=== PATIENT | male | born 1950 | race Caucasian/White ===

== ENCOUNTER → 2017-02-11 | Outpatient (CLI) | payer BC ==
[2017-02-11 09:45] LABS: BASO % 0.5 %; BASO ABS # 0.03 K/uL (0-0.2); COMPLETE YES; EOS % 0.6 %; HEMATOCRIT 43.5 % (42-52); IG% 0.5 %; LYMPH % 24.4 %; LYMPH ABS # 1.58 K/uL (1.2-3.4); MEAN CELL VOLUME 86.3 fL (80-100); MEAN CORPUSCULAR HEMOGLOBIN 31.2 pg (25-34); MEAN CORPUSCULAR HGB CONC 36.1 g/dl (32-36); MEAN PLATELET VOLUME 10.5 fL (7.4-10.4); MONO % 7.1 %; NEUT % 66.9 %; PLATELET COUNT 142 K/uL (130-400); RED BLOOD COUNT 5.04 M/uL (4.7-6.1); WHITE BLOOD COUNT 6.48 K/uL (4.8-10.8)
[2017-02-11 10:33] LABS: ESTIMATED AVERAGE GLUCOSE 111 mg/dl; HA1C FLAG Normal (Normal)
[2017-02-11 10:37] LABS: CHOLESTEROL/HDL RATIO 6.4
--- NOTE | 2017-02-18 07:28 | CODING QUERY MEDICAL NECESSITY ---
CQSUPPORTING DIAGNOSIS NEEDED A supporting diagnosis is required for the test/procedure performed on this patient in order for us to be reimbursed by the patient's insurance. Please provide a supporting diagnosis for the following test/procedure listed below next to the test name along with your signature. *If there is no additional diagnosis for this patient that would support the following test/procedure please document that below next to the test/procedure. Test(s)/Procedure(s) that require a supporting diagnosis: DOS 02/11/17 GLYCATED HEMOGLOBIN TEST Provider Signature: Date: Thank you Veronica Moyer [facility] Information [facility] Once completed, please kindly fax back to [phone] For questions please call [phone]
== END | disposition home or self-care (01) ==
LOC: C.LAB 09:15
PROVIDERS: ATTEND Internal Medicine
DX: Z11.59 Encounter for screening for other viral diseases (principal); E78.00 Pure hypercholesterolemia, unspecified; R73.9 Hyperglycemia, unspecified

== ENCOUNTER → 2017-05-20 | Outpatient (CLI) | payer BC ==
[2017-05-20 10:14] LABS: BASO % 0.5 %; BASO ABS # 0.03 K/uL (0-0.2); COMPLETE YES; HEMATOCRIT 42.8 % (42-52); IG% 0.5 %; LYMPH % 30.8 %; LYMPH ABS # 1.87 K/uL (1.2-3.4); MEAN CELL VOLUME 88.1 fL (80-100); MEAN CORPUSCULAR HEMOGLOBIN 30.9 pg (25-34); MONO % 5.8 %; NEUT % 61.4 %; PLATELET COUNT 156 K/uL (130-400); RED BLOOD COUNT 4.86 M/uL (4.7-6.1); WHITE BLOOD COUNT 6.07 K/uL (4.8-10.8)
[2017-05-20 10:23] LABS: ESTIMATED AVERAGE GLUCOSE 111 mg/dl; HA1C FLAG Normal (Normal)
[2017-05-20 10:51] LABS: CHOLESTEROL/HDL RATIO 3.1
--- NOTE | 2017-05-24 11:33 | CODING QUERY MEDICAL NECESSITY ---
SUPPORTING DIAGNOSIS NEEDED A supporting diagnosis is required for the test/procedure performed on this patient in order for us to be reimbursed by the patient's insurance. Please provide a supporting diagnosis for the following test/procedure listed below next to the test name along with your signature. *If there is no additional diagnosis for this patient that would support the following test/procedure please document that below next to the test/procedure. Test(s)/Procedure(s) that require a supporting diagnosis: * HEMOGLOBIN A1C DIAGNOSIS: Provider Signature: Date: Thank you Terri Contreras [employer] Once completed, please kindly fax back to [phone] For questions please call [phone]
== END | disposition home or self-care (01) ==
LOC: C.LAB 09:17
PROVIDERS: ATTEND Internal Medicine
DX: E78.00 Pure hypercholesterolemia, unspecified (principal); R73.9 Hyperglycemia, unspecified

== ENCOUNTER → 2017-11-22 | Outpatient (CLI) | payer BC ==
[2017-11-22 15:07] LABS: BASO % 0.6 %; BASO ABS # 0.03 K/uL (0-0.2); EOS % 1.3 %; EOS ABS # 0.07 K/uL (0-0.5); HEMATOCRIT 43.5 % (42-52); IG# 0.02 K/uL (0.00-0.02); LYMPH % 35.4 %; MEAN CELL VOLUME 88.4 fL (80-100); MEAN CORPUSCULAR HEMOGLOBIN 30.5 pg (25-34); MEAN CORPUSCULAR HGB CONC 34.5 g/dl (32-36); MONO % 5.6 %; NEUT % 56.7 %; NEUT ABS # 3.04 K/uL (1.4-6.5); PLATELET COUNT 158 K/uL (130-400); RED CELL DISTRIBUTION WIDTH CV 12.9 % (11.5-14.5); RED CELL DISTRIBUTION WIDTH SD 41.5 fL (36.4-46.3); WHITE BLOOD COUNT 5.36 K/uL (4.8-10.8)
[2017-11-22 15:14] LABS: ALT/SGPT 27 U/L (12-78); AST/SGOT 12 U/L (15-37); BLOOD UREA NITROGEN 17 mg/dl (7-18); CALCIUM 9.1 mg/dl (8.5-10.1); CARBON DIOXIDE 26 mmol/L (21-32); CHOLESTEROL 172 mg/dl (0-200); CREATININE 1.04 mg/dl (0.60-1.40); GLUCOSE 92 mg/dl (70-99); POTASSIUM 4.2 mmol/L (3.5-5.1); SODIUM 140 mmol/L (136-145)
[2017-11-22 15:18] LABS: LDL CHOLESTEROL CALCULATED 110 mg/dl
[2017-11-23 07:10] LABS: HEMOGLOBIN A1C 5.5 % (4.5-5.6)
--- NOTE | 2017-12-06 12:02 | CODING QUERY MEDICAL NECESSITY ---
SUPPORTING DIAGNOSIS NEEDED A supporting diagnosis is required for the test/procedure performed on this patient in order for us to be reimbursed by the patient's insurance. Please provide a supporting diagnosis for the following test/procedure listed below next to the test name along with your signature. *If there is no additional diagnosis for this patient that would support the following test/procedure please document that below next to the test/procedure. Test(s)/Procedure(s) that require a supporting diagnosis: * HEMOGLOBIN A1C DIAGNOSIS: Provider Signature: Date: Thank you Terri Contreras [employer] Once completed, please kindly fax back to [phone] For questions please call [phone]
== END | disposition home or self-care (01) ==
LOC: C.LAB 13:07
PROVIDERS: ATTEND Internal Medicine
DX: E78.00 Pure hypercholesterolemia, unspecified (principal); R73.9 Hyperglycemia, unspecified

== ENCOUNTER 2025-04-01 18:34 | Observation (INO) ==
--- NOTE | 2025-04-01 19:20 | Emergency Department Note ---
Impression & Plan Calculus of right ureter, Acute right flank pain, Hydronephrosis ED Provider Note HISTORY OF PRESENT ILLNESS: Patient is a 74-year-old male presenting with right lower quadrant abdominal pain. Patient reports that around 5:30 PM, he was driving to pick his family member up when he suddenly developed right lower back pain that radiated into his right lower quadrant. He states he got very diaphoretic and nauseous. He had an episode of vomiting prior to arrival in the emergency department. He denies any history of abdominal surgeries. Denies any dysuria or hematuria. His last p.o. intake was at 1500. Patient denies ever having pain like this before. He states that the pain is continuous, but does seem to be coming in waves of intensity. He states that few minutes ago it was about a 9 out of 10 and he vomited. He states that now he rates the pain as a 5 out of 10 and describes it as a pressure-like sensation. ROS: as above PHYSICAL EXAM: Constitutional: Patient appears in no acute distress. HENT: Head: Normocephalic and atraumatic. Eyes: EOMI, PERRL Mouth/Throat: Mucous membranes moist. Neck: Trachea midline. Neck supple. Cardiovascular: RRR, No murmurs, rubs or gallops. Intact distal pulses. Pulmonary/Chest: No respiratory distress. Breath sounds clear and equal bilaterally. No wheezes or rales. Abdominal: Abdomen soft, no rebound or guarding. RLQ TTP Back: No midline spinal tenderness, no paraspinal tenderness, no CVA tenderness. Musculoskeletal: No edema, tenderness or deformity noted. Skin: Warm and dry. No rash, erythema, pallor or cyanosis Psychiatric: Appropriate mood and affect for situation. Neurological: Alert and keenly responsive. CN II-XII grossly intact, moving all extremities equally and fully. MDM: - Vitals signs showed hypertension - History obtained via patient. History as above. - Chronic conditions affecting care: HLD - Differential diagnoses include, but are not limited to: Aortic aneurysm; appendicitis; diverticulitis; testicular torsion; ureteral calculi - Order placed for continuous cardiac monitoring. At this time, monitor showed rate of 84 bpm with normal sinus rhythm, per my interpretation. - External medical records reviewed. Wellness visit note dated 12/20/2024 was reviewed. Patient was seen for a health maintenance exam. He follows in their clinic for his hyperlipidemia. - Laboratory workup interpreted by myself showed normal WBC; stable electrolytes; hyperglycemia (glucose 206); normal creatinine; normal lipase - Patient initially given 4 mg IV Zofran, 4 mg IV morphine on arrival to the emergency department. However, on arrival back to the emergency room after CT imaging, patient was complaining of significant pain and nausea again. He was given 500 cc NS, 4 mg IV Zofran and 50 mcg IV fentanyl. - UA negative for infection. Noted to have hematuria - CT abdomen/pelvis with IV contrast showed mild enlargement of the distal tip of the appendix measuring 1 cm, concerning for possible acute early appendicitis. Noted to have a 4 mm stone in the mid right ureter and moderate right hydroureteronephrosis. - On reassessment and on discussion of the results, the patient reports that his pain is back to an 8 out of 10. He was given 15 mg IV Toradol. - Discussed case with general surgeon vision rehabilitation therapist, Dr. Graham, at 22:00. He reviewed the images himself and did not think the patient had acute appendicitis. He thought that patient's symptoms are likely secondary to the patient's ureteral stone and hydronephrosis. He recommended the patient get a dose of IV antibiotics and can be admitted to the medicine service and he can be seen tomorrow. - Patient given IV zosyn in the ER. - Discussion was had with case technician about patient's case and need for admission - Hospitalist, Dr. Parish, consulted for admission - [facility] 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 Arthritis Medical History Hx of basal cell carcinoma Hyperlipidemia Surgical History H/O colonoscopy History of cataract surgery History of tooth extraction History of tonsillectomy and adenoidectomy Blocked tear duct Hx of sinus surgery Family History Mother Colorectal cancer Breast cancer Grandmother (Paternal) Myocardial infarction Uncle Prostate cancer Myocardial infarction Grandfather (Maternal) Prostate cancer Denies family history of Ovarian cancer Social History Smoking Status: Never smoker Second Hand Exposure: No; Do You Dip or Chew Tobacco: No; Hx Alcohol Use: Yes Alcohol type: wine Hx Substance Use: No Preferred Language: Nauruan Communication Ability: Effective Visual Impairment: No Limitations Hearing Ability: Normal 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 Beliefs That Will Affect Care: None marital status: Current Living Situation: Spouse current occupational status: retired Feels Safe at Home: Yes Childhood Exposure to Second-Hand Smoke: No caffeine: Yes Dental Care, Regularly: Yes Physical Activity Frequency: Daily Seatbelt Use: always Sunscreen Use: Yes Assistive Devices: Glasses Allergies Allergies Allergy/AdvReac Type Severity Reaction Status Date / Time No Known Allergies Allergy Verified 04/01/25 22:43 Home Meds Home Medications Medication Instructions Recorded Confirmed aspirin 81 mg tablet,delayed 81 mg PO QAM 08/25/19 04/01/25 release docusate sodium 100 mg tablet 100 mg PO BID 08/25/19 04/01/25 multivitamin (Daily Multi-Vitamin 1 tab PO DAILY 08/25/19 04/01/25 tablet) guaifenesin 600 mg tablet, 600 mg PO QPM 05/03/20 04/01/25 extended release 12 hr (Mucinex) melatonin 5 mg tablet 5 mg PO HS PRN Sleep 05/03/20 04/01/25 coQ10 (ubiquinol) 100 mg capsule 100 mg PO QPM 09/27/20 04/01/25 metronidazole 0.75 % topical cream 1 applic topical DAILY PRN 04/01/25 04/01/25 DIRCTED Previous Rx's Medication Instructions Recorded atorvastatin 20 mg tablet 20 mg PO QPM #90 tabs 06/30/24 mometasone 50 mcg/actuation nasal 2 spray intranasal DAILY #17 grams 12/21/24 spray (Nasonex 24hr Allergy) azelastine 137 mcg (0.1 %) nasal 2 spray intranasal QPM #90 mL 02/02/25 spray Results & Data (ED) Vital Signs Vital Signs - 24 hr 04/01/25 18:37 04/01/25 19:10 04/01/25 19:33 Temperature 36.4 C L Temperature Source Temporal Artery Scan Pulse Rate 68 73 67 Respiratory Rate 24 16 Blood Pressure 196/97 H 190/97 H Blood Pressure Mean 130 128 Pulse Oximetry 98 99 Oxygen Delivery Method Room Air Sepsis Recent Fever Within 48 Hours No Sepsis New/Unexplained Change in Mental Status N/A Sepsis Action Taken by Nursing No Action Required 04/01/25 20:09 04/01/25 21:03 Temperature Temperature Source Pulse Rate 84 Respiratory Rate 24 Blood Pressure 198/107 H Blood Pressure Mean 137 Pulse Oximetry 99 97 Oxygen Delivery Method Room Air Sepsis Recent Fever Within 48 Hours Sepsis New/Unexplained Change in Mental Status Sepsis Action Taken by Nursing Laboratory Data 04/01/25 19:05 04/01/25 19:05 Lab Results 04/01/25 04/01/25 04/01/25 Range/Units 19:05 20:09 Unknown WBC 7.26 (4.8-10.8) K/ul RBC 4.58 L (4.70-6.10) M/uL Hgb 14.0 (14.0-18.0) g/dl Hct 40.4 L (42.0-52.0) % MCV 88.2 (80.0-100.0) fL MCH 30.6 (25.0-34.0) pg MCHC 34.7 (32.0-36.0) g/dL RDW Std Deviation 41.3 (36.4-46.3) fL RDW Coeff of Kevin 12.8 (11.5-14.5) % Plt Count 162 (130-400) K/uL MPV 11.2 (9.4-12.4) fL Immature Gran % (Auto) 0.6 % Neut % (Auto) 65.0 % Lymph % (Auto) 27.4 % Curry % (Auto) 5.0 % Eos % (Auto) 1.4 % Baso % (Auto) 0.6 % Neut # (Auto) 4.73 (1.40-6.50) K/uL Lymph # (Auto) 1.99 (1.20-3.40) K/uL Curry # (Auto) 0.36 (0.11-0.59) K/uL Eos # (Auto) 0.10 (0.00-0.50) K/uL Baso # (Auto) 0.04 (0.00-0.20) K/uL Immature Gran # (Auto) 0.04 (0.01-0.20) K/uL Sodium 141 (136-145) mmol/L Potassium 4.1 (3.5-5.1) mmol/L Chloride 108 H (98-107) mmol/L Carbon Dioxide 26 (21-32) mmol/L Anion Gap 7 (3-11) BUN 27 H (6-23) mg/dl Creatinine 1.21 (0.6-1.4) mg/dl Est Cr Clr Drug Dosing Not Reportable eGFR 62.83 BUN/Creatinine Ratio 22.3 H (10-20) Glucose 206 H (70-99(Fasting)) mg/dl Lactate 1.2 (0.4-2.0) mmol/L Calcium 9.6 (8.6-10.3) mg/dl Total Bilirubin 0.7 (0.2-1.0) mg/dl AST 37 (13-39) U/L ALT 22 (7-52) U/L Alkaline Phosphatase 69 (34-104) U/L Total Protein 7.4 (6.0-8.3) gm/dl Albumin 4.7 (3.4-5.0) gm/dl Globulin 2.7 (2.5-4.0) gm/dl Albumin/Globulin Ratio 1.7 (0.9-2) Lipase 20 (11-82) U/L Urine Color Yellow Urine Appearance Clear (Clear) Urine pH 6.5 (4.5-7.5) Ur Specific Sebastian 1.020 (1.000-1.030) Urine Protein 1+ H (Negative) Urine Glucose (UA) Negative (Negative) Urine Ketones 2+ H (Negative) Urine Blood 3+ H (Negative) Urine Nitrite Negative (Negative) Urine Bilirubin Negative (Negative) Urine Urobilinogen Negative (Negative) Ur Leukocyte Esterase Negative (Negative) Urine WBC (Auto) 0-5 (0-5) /hpf Urine RBC (Auto) >20 H (0-2) /hpf U Hyaline Cast (Auto) 0-2 (0-2) /lpf U Epithel Cells (Auto) 0-2 (0-2) /hpf Urine Bacteria (Auto) None Seen (None Seen) Administered Medications Discontinued Medications Fentanyl Citrate (Fentanyl Citrate Pf 100 Mcg/2 Ml Vial) 50 mcg IV NOW STA Stop: 04/01/25 20:53 Last Admin: 04/01/25 21:01 Dose: 50 mcg Documented By: ROBERT Sodium Chloride (Nss) 500 mls @ 999 mls/hr IV .Q31M ONE Stop: 04/01/25 19:50 Last Infusion: 04/01/25 21:35 Dose: Infused Documented By: Admin: 04/01/25 19:43 Dose: 999 mls/hr Documented By: ROBERT Ioversol (Optiray 320 100ml) 90 ml IV ONCE ONE Stop: 04/01/25 20:41 Last Admin: 04/01/25 20:40 Dose: 90 ml Documented By: CHINA Morphine Sulfate (Morphine Sulfate 4 Mg/Ml 1 Ml Carp\Vial) 4 mg IV NOW STA Stop: 04/01/25 19:21 Last Admin: 04/01/25 19:43 Dose: 4 mg Documented By: ROBERT Ondansetron HCl (Ondansetron Inj 2 Mg/Ml 2 Ml Vial) 4 mg IV NOW STA Stop: 04/01/25 19:21 Last Admin: 04/01/25 19:43 Dose: 4 mg Documented By: ROBERT Ondansetron HCl (Ondansetron Inj 2 Mg/Ml 2 Ml Vial) 4 mg IV NOW STA Stop: 04/01/25 20:53 Last Admin: 04/01/25 21:01 Dose: 4 mg Documented By: ROBERT Imaging Data Radiologist's Impression: Abdomen/Pelvis CT 04/01/25 19:20 Exam(s): CT ABDOMEN + PELVIS With Contrast IV Amt: 90 ml optiray 320 EXAM: CT Abdomen and Pelvis With Intravenous Contrast CLINICAL HISTORY: Reason for exam: RLQ abd pain. TECHNIQUE: Axial computed tomography images of the abdomen and pelvis with intravenous contrast. CTDI is 24.54 mGy and DLP is 1221.95 mGy-cm. Automated exposure control was utilized for the study. A dose lowering technique was utilized adhering to the principles of ALARA. CONTRAST: Patient received 90 ml optiray 320 of IV contrast COMPARISON: None FINDINGS: Lung bases: Unremarkable. No mass. No consolidation. ABDOMEN: Liver: Unremarkable. No mass. Gallbladder and bile ducts: Cholelithiasis. No ductal dilation. Pancreas: Unremarkable. No mass. No ductal dilation. Spleen: Small splenule. Mild splenomegaly. Adrenals: Unremarkable. No mass. Kidneys and ureters: 4 mm stone in the mid right ureter. Moderate hydroureteronephrosis. Right perinephric fat stranding/fluid. Mild excreting contrast in the left renal collecting system. No hydronephrosis on the left. Right renal cyst. No further follow-up necessary. Stomach and bowel: Unremarkable. No obstruction. No mucosal thickening. PELVIS: Appendix: Mild enlargement of the distal tip of the appendix measuring 1 cm in diameter. Early acute appendicitis or tip appendicitis cannot be excluded. Bladder: Mild prominence of the bladder wall is nonspecific. Please correlate with urinalysis if concerned for cystitis. Reproductive: Unremarkable as visualized. ABDOMEN and PELVIS: Intraperitoneal space: Unremarkable. No free air. No significant fluid collection. Bones/joints: Mild curvature of the spine. Degenerative changes of the spine. No acute fracture. No dislocation. Soft tissues: Fat-containing bilateral inguinal hernias. Small fat- containing umbilical hernia. Vasculature: Atherosclerotic changes of the vasculature. No abdominal aortic aneurysm or dissection. Lymph nodes: Unremarkable. No enlarged lymph nodes. IMPRESSION: 1. Mild enlargement of the distal tip of the appendix measuring 1 cm in diameter. Early acute appendicitis or tip appendicitis cannot be excluded. 2. 4 mm stone in the mid right ureter. Moderate hydroureteronephrosis. Right perinephric fat stranding/fluid. 3. Mild prominence of the bladder wall is nonspecific. Please correlate with urinalysis if concerned for cystitis. 4. Cholelithiasis. Electronically signed by: Anthony Miranda M.D. 04/01/25 21:39 PM Discharge Plan Visit Data Chief Complaint: Abdominal Pain Stated Complaint: COLD SWEAT,RT SIDE CHEST PAIN, RT FLANK PAIN ED Provider: Umu Chairez Discharge Problem: Calculus of right ureter, Acute right flank pain, Hydronephrosis Patient Disposition: Admitted As Inpatient Condition: Good Forms Stand Alone Forms: My [facility] Prescriptions Prescriptions: No Action atorvastatin 20 mg tablet 20 mg PO QPM Qty: 90 3RF azelastine 137 mcg (0.1 %) spray,non-aerosol 2 spray intranasal QPM Qty: 90 3RF Rx Instructions: 90 day supply= 3 bottles mometasone [Nasonex 24hr Allergy] 50 mcg/actuation spray,non-aerosol 2 spray intranasal DAILY Qty: 17 3RF Rx Instructions: administer into each nostril multivitamin [Daily Multi-Vitamin] tablet 1 tab PO DAILY aspirin 81 mg tablet,delayed release (DR/EC) 81 mg PO QAM docusate sodium 100 mg tablet 100 mg PO BID melatonin 5 mg Tablet 5 mg PO HS PRN (Reason: Sleep) guaifenesin [Mucinex] 600 mg Tablet Extended Release 12hr 600 mg PO QPM coQ10 (ubiquinol) 100 mg capsule 100 mg PO QPM metronidazole 0.75 % cream 1 applic topical DAILY PRN (Reason: DIRCTED) Referrals Referrals: Anatoly Luz MD [Primary Care Provider] -
[2025-04-01] MEDS: SODIUM CHLORIDE 0.9% 500 ML IV ONE (19:43)
[2025-04-01] MEDS: ONDANSETRON INJ 2 MG/ML 2 ML VIAL IV STA ×2 (19:43→21:01)
[2025-04-01] MEDS: MoRPHine SULFATE 4 MG/ML 1 ML CARP\\VIAL IV STA (19:43)
[2025-04-01 20:25] LABS: Alanine Aminotransferase 22 U/L (7-52); Albumin Globulin Ratio 1.7 (0.9-2); Albumin Level 4.7 gm/dl (3.4-5.0); Alkaline Phosphatase 69 U/L (34-104); Anion Gap 7 (3-11); Aspartate Aminotransferase 37 U/L (13-39); BUN Creatinine Ratio 22.3 (10-20); Bilirubin,Total 0.7 mg/dl (0.2-1.0); Blood Urea Nitrogen 27 mg/dl (6-23); Calcium 9.6 mg/dl (8.6-10.3); Carbon Dioxide 26 mmol/L (21-32); Chloride 108 mmol/L (98-107); Globulin 2.7 gm/dl (2.5-4.0); Glucose 206 mg/dl (70-99(Fasting)); Lipase 20 U/L (11-82); Potassium 4.1 mmol/L (3.5-5.1); Sodium 141 mmol/L (136-145); Total Protein 7.4 gm/dl (6.0-8.3)
[2025-04-01] MEDS: OPTIRAY 320 100ml IV ONE (20:40)
[2025-04-01 20:46] LABS: Appearance Urine Clear (Clear); Bacteria Urine Automated None Seen (None Seen); Bilirubin Urine Negative (Negative); Blood Urine 3+ (Negative); Cast Urine Automated 0-2 /lpf (0-2); Color Urine Yellow; Epithelial Cell Urine Auto 0-2 /hpf (0-2); Glucose Urine UA Negative (Negative); Ketones Urine 2+ (Negative); Leukocyte Esterase Urine Negative (Negative); Nitrite Urine Negative (Negative); Protein Urine 1+ (Negative); RBC Urine Automated >20 /hpf (0-2); Urobilinogen Urine Negative (Negative); WBC Urine Automated 0-5 /hpf (0-5); pH Urine 6.5 (4.5-7.5)
[2025-04-01] MEDS: fentaNYL citrate PF 100 MCG/2 ML VIAL IV STA (21:01)
--- NOTE | 2025-04-01 21:39 | CT Scan Report ---
Exam(s): CT ABDOMEN + PELVIS With Contrast IV Amt: 90 ml optiray 320 EXAM: CT Abdomen and Pelvis With Intravenous Contrast CLINICAL HISTORY: Reason for exam: RLQ abd pain. TECHNIQUE: Axial computed tomography images of the abdomen and pelvis with intravenous contrast. CTDI is 24.54 mGy and DLP is 1221.95 mGy-cm. Automated exposure control was utilized for the study. A dose lowering technique was utilized adhering to the principles of ALARA. CONTRAST: Patient received 90 ml optiray 320 of IV contrast COMPARISON: None FINDINGS: Lung bases: Unremarkable. No mass. No consolidation. ABDOMEN: Liver: Unremarkable. No mass. Gallbladder and bile ducts: Cholelithiasis. No ductal dilation. Pancreas: Unremarkable. No mass. No ductal dilation. Spleen: Small splenule. Mild splenomegaly. Adrenals: Unremarkable. No mass. Kidneys and ureters: 4 mm stone in the mid right ureter. Moderate hydroureteronephrosis. Right perinephric fat stranding/fluid. Mild excreting contrast in the left renal collecting system. No hydronephrosis on the left. Right renal cyst. No further follow-up necessary. Stomach and bowel: Unremarkable. No obstruction. No mucosal thickening. PELVIS: Appendix: Mild enlargement of the distal tip of the appendix measuring 1 cm in diameter. Early acute appendicitis or tip appendicitis cannot be excluded. Bladder: Mild prominence of the bladder wall is nonspecific. Please correlate with urinalysis if concerned for cystitis. Reproductive: Unremarkable as visualized. ABDOMEN and PELVIS: Intraperitoneal space: Unremarkable. No free air. No significant fluid collection. Bones/joints: Mild curvature of the spine. Degenerative changes of the spine. No acute fracture. No dislocation. Soft tissues: Fat-containing bilateral inguinal hernias. Small fat- containing umbilical hernia. Vasculature: Atherosclerotic changes of the vasculature. No abdominal aortic aneurysm or dissection. Lymph nodes: Unremarkable. No enlarged lymph nodes. IMPRESSION: 1. Mild enlargement of the distal tip of the appendix measuring 1 cm in diameter. Early acute appendicitis or tip appendicitis cannot be excluded. 2. 4 mm stone in the mid right ureter. Moderate hydroureteronephrosis. Right perinephric fat stranding/fluid. 3. Mild prominence of the bladder wall is nonspecific. Please correlate with urinalysis if concerned for cystitis. 4. Cholelithiasis. Electronically signed by: Anthony Miranda M.D. 04/01/25 21:39 PM
[2025-04-01 21:42] LABS: Basophils # (auto) 0.04 K/uL (0.00-0.20); Basophils % (auto) 0.6 %; Eosinophils % (auto) 1.4 %; Hematocrit (blood only) 40.4 % (42.0-52.0); Immature Granulocytes # (auto) 0.04 K/uL (0.01-0.20); Immature Granulocytes % (auto) 0.6 %; Lymphocytes # (auto) 1.99 K/uL (1.20-3.40); Lymphocytes % (auto) 27.4 %; Mean Corpuscular Hemoglobin 30.6 pg (25.0-34.0); Mean Corpuscular Hgb Conc 34.7 g/dL (32.0-36.0); Mean Corpuscular Volume 88.2 fL (80.0-100.0); Mean Platelet Volume 11.2 fL (9.4-12.4); Monocytes # (auto) 0.36 K/uL (0.11-0.59); Neutrophils # (auto) 4.73 K/uL (1.40-6.50); Platelet Count 162 K/uL (130-400); RDW Coefficient of Variation 12.8 % (11.5-14.5); RDW Standard Deviation 41.3 fL (36.4-46.3); Red Blood Count 4.58 M/uL (4.70-6.10); White Blood Count 7.26 K/ul (4.8-10.8)
[2025-04-01] MEDS: KETOROLAC TROMETHAMINE 15 MG/ML VIAL IV STA (23:14)
[2025-04-01] MEDS: PIPERACILLIN/TAZOBACTAM 4.5 GM/100 ML BAG IV ONE (23:14)
--- NOTE | 2025-04-01 23:36 | History & Physical Report ---
Date of Service April 01, 2025 Assessment & Plan (1) Hydronephrosis: (2) Acute right flank pain: (3) Calculus of right ureter: (4) Dyslipidemia: Plan Tai is a 74 y/o male with PMH of Hyperlipidemia that presented to the Ed due to right lower quadrant and back pain. Pain started this afternoon 5 pm, he describe the pain 10/10 that waxes and wane. On Ed evaluation found with kidney stone measure 4 mm, right moderate hydroureteronephrosis and acute appendicitis. Initial workup without leukocytosis, fever or tachycardia. Patient will be admitted for further evaluation and treatment #Kidney Stone / Moderate hydroureteronephrosis - Sudden acute 10/10 pain that waxes and wane with right lower quadrant abdominal pain - No leukocytosis, no fever, hemodynamically stable - Ab CT - 4 mm stone in mid right ureter. Moderate hydroureteronephrosis - UA: Blood, RBC no nitrate, no wbc, no leuk esterase - Urology consulted, aprec recommendations - Toradol IV Q6hr prn, Tylenol prn, Morphine prn for pain management - Zofran for nausea - Pyridium prn added - Continue IV hydration - Urine strain and stone analysis added - NPO at midnight - Labs AM #Acute appendicitis - Right lower quadrant pain - Abdominal AP - Early acute appendicitis or tip appendicitis - surgery consulted, Aprec recommendations - s/p zosyn in ED - Will continue with IV Ceftriaxone and IV Flagyl - NPO at midnight - Pain management as above #HLD- continue atorvastatin, ASA on hold for possible surgical intervention DVT prophylaxis- SCDs, Hold pharmacological due to potential OR intervention. disposition- Med / Surg History of Present Illness Primary Care Provider: Anatoly Luz MD Tai is a 74 y/o male with PMH of Hyperlipidemia that presented to the Ed due to right lower quadrant and back pain. Pain started this afternoon 5 pm, he describe the pain 10/10 that waxes and wane. Patient states he did developed nausea as well. Denied any history of kidney stones. Denied any fever, or chills. Denied any chest pain, SOB, palpitations. Evaluation found with kidney stone measure 4 mm, right moderate hydroureteronephrosis and acute appendicitis. Initial workup without leukocytosis, fever or tachycardia. Allergies Allergy/AdvReac Type Severity Reaction Status Date / Time No Known Allergies Allergy Verified 04/01/25 22:43 Home Medications Medication Instructions Recorded Confirmed Type aspirin 81 mg tablet,delayed 81 mg PO QAM 08/25/19 04/01/25 History release docusate sodium 100 mg tablet 100 mg PO BID 08/25/19 04/01/25 History multivitamin (Daily Multi-Vitamin 1 tab PO DAILY 08/25/19 04/01/25 History tablet) guaifenesin 600 mg tablet, 600 mg PO QPM 05/03/20 04/01/25 History extended release 12 hr (Mucinex) melatonin 5 mg tablet 5 mg PO HS PRN Sleep 05/03/20 04/01/25 History coQ10 (ubiquinol) 100 mg capsule 100 mg PO QPM 09/27/20 04/01/25 History atorvastatin 20 mg tablet 20 mg PO QPM #90 tabs 06/30/24 04/01/25 Rx mometasone 50 mcg/actuation nasal 2 spray intranasal DAILY #17 grams 12/21/24 04/01/25 Rx spray (Nasonex 24hr Allergy) azelastine 137 mcg (0.1 %) nasal 2 spray intranasal QPM #90 mL 02/02/25 04/01/25 Rx spray metronidazole 0.75 % topical cream 1 applic topical DAILY PRN 04/01/25 04/01/25 History DIRCTED Past Med/Surg History Problem List (Updated 04/02/25 @ 05:44 by Chris Graham MD) Right sided abdominal pain Hydronephrosis (Acute) Acute right flank pain (Acute) Calculus of right ureter (Acute) EKG abnormalities Blood pressure elevated without history of HTN Rosacea (Chronic) Elevated PSA (Chronic) Dyslipidemia (Chronic) Family history of colon cancer in mother Health care maintenance Hyperglycemia (Chronic) Diet controlled per PCP Impotence, organic Chronic rhinitis 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 TRIGGERS Arthritis Medical History Hx of basal cell carcinoma REMOVED FROM FOREARM Hyperlipidemia Surgical History H/O colonoscopy History of cataract surgery left/right History of tooth extraction History of tonsillectomy and adenoidectomy Blocked tear duct REPAIRED Hx of sinus surgery Family History Mother Colorectal cancer Breast cancer Grandmother (Paternal) Myocardial infarction Uncle Prostate cancer Myocardial infarction Grandfather (Maternal) Prostate cancer Denies family history of Ovarian cancer Social History Smoking Status: Never smoker Tobacco Type: Declines Second Hand Exposure: No; Do You Dip or Chew Tobacco: No; Tobacco Cessation Education Requested by Patient: No Hx Alcohol Use: Yes Alcohol type: wine Hx Substance Use: No Preferred Language: Macedonian Communication Ability: Effective Visual Impairment: No Limitations Hearing Ability: Normal Right Of Way Maintenance Supervisor Required: No Beliefs That Will Affect Care: None marital status: Current Living Situation: Spouse current occupational status: retired Other Information That Helps Us Care for You: No Feels Safe at Home: Yes Childhood Exposure to Second-Hand Smoke: No caffeine: Yes Dental Care, Regularly: Yes Physical Activity Frequency: Daily Seatbelt Use: always Sunscreen Use: Yes Assistive Devices: None Review of Systems Review of Systems: as per HPi Physical Exam Constitutional: well developed, well nourished and + well hydrated; no acute distress ENMT: external ear and nose normal, oropharynx normal Respiratory: normal respiratory effort, lungs clear to auscultation Cardiovascular: RRR, no murmur, no edema Gastrointestinal (Abdomen): Inspection/Auscultation: abdomen normal to inspection and normal bowel sounds; abdomen not distended Percussion/Palpation: + abdomen tender (Right lower quadrant) and abdomen soft; no guarding and abdomen not rigid No CVA tenderness Results & Data Results & Data Vital Signs (Past 12 Hours) Vital Signs Temp Pulse Resp BP Pulse Ox O2 Del Method 04/01/25 22:30 87 18 171/104 H 95 04/01/25 22:06 73 20 200/131 H 96 04/01/25 21:03 84 24 198/107 H 97 04/01/25 20:09 99 Room Air 04/01/25 19:33 67 16 190/97 H 99 04/01/25 19:10 73 04/01/25 18:37 36.4 C L 68 24 196/97 H 98 Room Air Code Status & VTE Plan VTE Prophylaxis Plan VTE Prophylaxis will be ordered: Yes Supervising Physician Co-Signing Physician Notes I personally saw and examined the patient. I independently reviewed the labs, EKG, imaging, problem list, medication list, past medical history and family history. I verified all tavarez points and agree with resident physician Dr Kendra Vasquez MD with the following exceptions and/or additions: 74 year old male presents to the ER with sudden onset right flank pain O/E HS RRR, no murmurs, Chest CTAB, RLQ abdominal pain on deep palpation without r ebound tenderness, mild right CVA tenderness A/P Ureterolithiasis with hydronephrosis - strain all urine, stone analysis if passes stone, IV fluids, pain medications, consult urology Possible appendicitis - continue antibiotics pending surgical evaluation although suspect pain most likely from ureteral stone Resident Activity Tracking Resident Involvement: Resident Care Provided Care Provided: Adult [facility]
[2025-04-01] MEDS ORDERED: KETOROLAC TROMETHAMINE 15 MG/ML VIAL IV PRN (23:41)
[2025-04-01] MEDS ORDERED: MoRPHine SULFATE 2 MG/ML CARP IV PRN (23:41)
[2025-04-02] MEDS ORDERED: POLYETHYLENE (MIRALAX) 17 GM PACK PO PRN (01:54)
[2025-04-02] MEDS ORDERED: ONDANSETRON INJ 2 MG/ML 2 ML VIAL IV PRN (01:54)
[2025-04-02] MEDS ORDERED: PHENAZOPYRIDINE HCL 100 MG TAB PO PRN (01:54)
[2025-04-02] MEDS ORDERED: ACETAMINOPHEN 325 MG TAB PO PRN (01:54)
[2025-04-02] MEDS ORDERED: MELATONIN 3 MG TAB PO PRN (02:11)
[2025-04-02] MEDS: SODIUM CHLORIDE 0.9% 1,000 ML IV SCH (03:01)
--- NOTE | 2025-04-02 05:43 | Surgery Consultation ---
Date of Consultation April 02, 2025 Assessment & Plan (1) Acute right flank pain: (2) Calculus of right ureter: (3) Hydronephrosis: (4) Right sided abdominal pain: Plan 74-year-old gentleman presents with sudden onset of right flank pain radiating to his right abdomen and groin. CT findings with right hydronephrosis, right obstructing kidney stone, right renal inflammation, as well as equivocal finding of the appendix. White count is normal. Urinalysis demonstrates blood in the urine. I do not believe that he has appendicitis. This seems to be an incidental finding on the CT scan. His clinical presentation, laboratory and CT evaluation all strongly suggest that this process is due to the kidney stone and hydronephrosis. We will continue to monitor for now. Urology consult for the hydronephrosis. History of Present Illness Reason for Consultation: possible appendicitis Requesting Physician: Soy Parish MD Attending Physician: Soy Parish MD History of Present Illness 74-year-old gentleman presents to the emergency department with leg pain and right abdominal pain. 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 This was accompanied by chills and nausea from the pain. He has never had pain like this in the past. He denies kidney stones in the past. He has not had any abdominal operations. Currently he is resting comfortably in bed and is not having any pain. CT scan demonstrated right 4 mm kidney stone, right hydronephrosis, inflammation around the right kidney. It also noted a possible dilatation of the tip of the appendix possibly denoting an early acute or tip appendicitis in the appropriate clinical setting. Allergies Allergy/AdvReac Type Severity Reaction Status Date / Time No Known Allergies Allergy Verified 04/01/25 22:43 Home Medications Medication Instructions Recorded Confirmed Type aspirin 81 mg tablet,delayed 81 mg PO QAM 08/25/19 04/01/25 History release docusate sodium 100 mg tablet 100 mg PO BID 08/25/19 04/01/25 History multivitamin (Daily Multi-Vitamin 1 tab PO DAILY 08/25/19 04/01/25 History tablet) guaifenesin 600 mg tablet, 600 mg PO QPM 05/03/20 04/01/25 History extended release 12 hr (Mucinex) melatonin 5 mg tablet 5 mg PO HS PRN Sleep 05/03/20 04/01/25 History coQ10 (ubiquinol) 100 mg capsule 100 mg PO QPM 09/27/20 04/01/25 History atorvastatin 20 mg tablet 20 mg PO QPM #90 tabs 06/30/24 04/01/25 Rx mometasone 50 mcg/actuation nasal 2 spray intranasal DAILY #17 grams 12/21/24 04/01/25 Rx spray (Nasonex 24hr Allergy) azelastine 137 mcg (0.1 %) nasal 2 spray intranasal QPM #90 mL 02/02/25 04/01/25 Rx spray metronidazole 0.75 % topical cream 1 applic topical DAILY PRN 04/01/25 04/01/25 History DIRCTED Patient History Medical History Hx of basal cell carcinoma REMOVED FROM FOREARM Hyperlipidemia Surgical History H/O colonoscopy History of cataract surgery left/right History of tooth extraction History of tonsillectomy and adenoidectomy Blocked tear duct REPAIRED Hx of sinus surgery Family History Mother Colorectal cancer Breast cancer Grandmother (Paternal) Myocardial infarction Uncle Prostate cancer Myocardial infarction Grandfather (Maternal) Prostate cancer Denies family history of Ovarian cancer Social History Smoking Status: Never smoker Tobacco Type: Declines Second Hand Exposure: No; Do You Dip or Chew Tobacco: No; Tobacco Cessation Education Requested by Patient: No Hx Alcohol Use: Yes Alcohol type: wine Hx Substance Use: No Preferred Language: Upper Sorbian Communication Ability: Effective Visual Impairment: No Limitations Hearing Ability: Normal Pantograph I Engraver Required: No Beliefs That Will Affect Care: None marital status: Current Living Situation: Spouse current occupational status: retired Other Information That Helps Us Care for You: No Feels Safe at Home: Yes Childhood Exposure to Second-Hand Smoke: No caffeine: Yes Dental Care, Regularly: Yes Physical Activity Frequency: Daily Seatbelt Use: always Sunscreen Use: Yes Assistive Devices: None Review of Systems Review of Systems: All systems reviewed & are unremarkable except as noted in HPI & below Physical Exam Constitutional: WD/WN, vitals as above Eyes: PERRL, conjunctivae normal, anicteric sclerae Neck: trachea midline, no thyromegaly Respiratory: normal respiratory effort; no respiratory distress and no labored breathing Cardiovascular: Rate/Rhythm: regular rate and regular rhythm Gastrointestinal (Abdomen): Inspection/Auscultation: abdomen normal to inspection; abdomen not distended Percussion/Palpation: abdomen soft; abdomen nontender, no guarding and abdomen not rigid Skin: no rashes, warm and dry Psychiatric: A+Ox3, euthymic affect Results & Data Vital Signs (Past 12 Hours) Vital Signs Temp Pulse Pulse Resp BP BP Pulse Ox 04/02/25 01:55 36.5 C 73 18 174/92 H 94 04/02/25 00:56 36.8 C 66 17 135/79 98 04/01/25 23:15 64 04/01/25 22:30 87 18 171/104 H 95 04/01/25 22:06 73 20 200/131 H 96 04/01/25 21:03 84 24 198/107 H 97 04/01/25 20:09 99 04/01/25 19:33 67 16 190/97 H 99 04/01/25 19:10 73 04/01/25 18:37 36.4 C L 68 24 196/97 H 98 O2 Del Method 04/02/25 01:55 Room Air 04/02/25 00:56 Room Air 04/01/25 23:15 04/01/25 22:30 04/01/25 22:06 04/01/25 21:03 04/01/25 20:09 Room Air 04/01/25 19:33 04/01/25 19:10 04/01/25 18:37 Room Air Laboratory Results 04/01/25 04/01/25 04/01/25 Range/Units Unknown 20:09 19:05 WBC 7.26 (4.8-10.8) K/ul RBC 4.58 L (4.70-6.10) M/uL Hgb 14.0 (14.0-18.0) g/dl Hct 40.4 L (42.0-52.0) % MCV 88.2 (80.0-100.0) fL MCH 30.6 (25.0-34.0) pg MCHC 34.7 (32.0-36.0) g/dL RDW Std Deviation 41.3 (36.4-46.3) fL RDW Coeff of Kevin 12.8 (11.5-14.5) % Plt Count 162 (130-400) K/uL MPV 11.2 (9.4-12.4) fL Immature Gran % (Auto) 0.6 % Neut % (Auto) 65.0 % Lymph % (Auto) 27.4 % Davison % (Auto) 5.0 % Eos % (Auto) 1.4 % Baso % (Auto) 0.6 % Neut # (Auto) 4.73 (1.40-6.50) K/uL Lymph # (Auto) 1.99 (1.20-3.40) K/uL Davison # (Auto) 0.36 (0.11-0.59) K/uL Eos # (Auto) 0.10 (0.00-0.50) K/uL Baso # (Auto) 0.04 (0.00-0.20) K/uL Immature Gran # (Auto) 0.04 (0.01-0.20) K/uL Sodium 141 (136-145) mmol/L Potassium 4.1 (3.5-5.1) mmol/L Chloride 108 H (98-107) mmol/L Carbon Dioxide 26 (21-32) mmol/L Anion Gap 7 (3-11) BUN 27 H (6-23) mg/dl Creatinine 1.21 (0.6-1.4) mg/dl Est Cr Clr Drug Dosing Not Reportable eGFR 62.83 BUN/Creatinine Ratio 22.3 H (10-20) Glucose 206 H (70-99(Fasting)) mg/dl Lactate 1.2 (0.4-2.0) mmol/L Calcium 9.6 (8.6-10.3) mg/dl Total Bilirubin 0.7 (0.2-1.0) mg/dl AST 37 (13-39) U/L ALT 22 (7-52) U/L Alkaline Phosphatase 69 (34-104) U/L Total Protein 7.4 (6.0-8.3) gm/dl Albumin 4.7 (3.4-5.0) gm/dl Globulin 2.7 (2.5-4.0) gm/dl Albumin/Globulin Ratio 1.7 (0.9-2) Lipase 20 (11-82) U/L Urine Color Yellow Urine Appearance Clear (Clear) Urine pH 6.5 (4.5-7.5) Ur Specific [place] 1.020 (1.000-1.030) Urine Protein 1+ H (Negative) Urine Glucose (UA) Negative (Negative) Urine Ketones 2+ H (Negative) Urine Blood 3+ H (Negative) Urine Nitrite Negative (Negative) Urine Bilirubin Negative (Negative) Urine Urobilinogen Negative (Negative) Ur Leukocyte Esterase Negative (Negative) Urine WBC (Auto) 0-5 (0-5) /hpf Urine RBC (Auto) >20 H (0-2) /hpf U Hyaline Cast (Auto) 0-2 (0-2) /lpf U Epithel Cells (Auto) 0-2 (0-2) /hpf Urine Bacteria (Auto) None Seen (None Seen) Diagnostic Findings Exam(s): CT ABDOMEN + PELVIS With Contrast IV Amt: 90 ml optiray 320 EXAM: CT Abdomen and Pelvis With Intravenous Contrast CLINICAL HISTORY: Reason for exam: RLQ abd pain. TECHNIQUE: Axial computed tomography images of the abdomen and pelvis with intravenous contrast. CTDI is 24.54 mGy and DLP is 1221.95 mGy-cm. Automated exposure control was utilized for the study. A dose lowering technique was utilized adhering to the principles of ALARA. CONTRAST: Patient received 90 ml optiray 320 of IV contrast COMPARISON: None FINDINGS: Lung bases: Unremarkable. No mass. No consolidation. ABDOMEN: Liver: Unremarkable. No mass. Gallbladder and bile ducts: Cholelithiasis. No ductal dilation. Pancreas: Unremarkable. No mass. No ductal dilation. Spleen: Small splenule. Mild splenomegaly. Adrenals: Unremarkable. No mass. Kidneys and ureters: 4 mm stone in the mid right ureter. Moderate hydroureteronephrosis. Right perinephric fat stranding/fluid. Mild excreting contrast in the left renal collecting system. No hydronephrosis on the left. Right renal cyst. No further follow-up necessary. Stomach and bowel: Unremarkable. No obstruction. No mucosal thickening. PELVIS: Appendix: Mild enlargement of the distal tip of the appendix measuring 1 cm in diameter. Early acute appendicitis or tip appendicitis cannot be excluded. Bladder: Mild prominence of the bladder wall is nonspecific. Please correlate with urinalysis if concerned for cystitis. Reproductive: Unremarkable as visualized. ABDOMEN and PELVIS: Intraperitoneal space: Unremarkable. No free air. No significant fluid collection. Bones/joints: Mild curvature of the spine. Degenerative changes of the spine. No acute fracture. No dislocation. Soft tissues: Fat-containing bilateral inguinal hernias. Small fat- containing umbilical hernia. Vasculature: Atherosclerotic changes of the vasculature. No abdominal aortic aneurysm or dissection. Lymph nodes: Unremarkable. No enlarged lymph nodes. IMPRESSION: 1. Mild enlargement of the distal tip of the appendix measuring 1 cm in diameter. Early acute appendicitis or tip appendicitis cannot be excluded. 2. 4 mm stone in the mid right ureter. Moderate hydroureteronephrosis. Right perinephric fat stranding/fluid. 3. Mild prominence of the bladder wall is nonspecific. Please correlate with urinalysis if concerned for cystitis. 4. Cholelithiasis. Electronically signed by: Anthony Miranda M.D. 04/01/25 21:39 PM
[2025-04-02] MEDS: metroNIDAZOLE 500 MG/100 ML BAG IV SCH (05:46)
--- NOTE | 2025-04-02 06:37 | Billing Data ---
Date of Service April 02, 2025 Coding Level of Care Code 89740 INT INP/OBS CARE
[2025-04-02 07:36] VITALS: BP 163/80; PULSE 50; RESP 12; TEMP 95.2; O2SAT 97
[2025-04-02 07:41] LABS: Basophils # (auto) 0.04 K/uL (0.00-0.20); Basophils % (auto) 0.5 %; Eosinophils # (auto) 0.05 K/uL (0.00-0.50); Eosinophils % (auto) 0.6 %; Hematocrit (blood only) 36.5 % (42.0-52.0); Hemoglobin 12.5 g/dl (14.0-18.0); Immature Granulocytes # (auto) 0.03 K/uL (0.01-0.20); Immature Granulocytes % (auto) 0.4 %; Lymphocytes # (auto) 1.93 K/uL (1.20-3.40); Lymphocytes % (auto) 23.9 %; Mean Corpuscular Hemoglobin 30.1 pg (25.0-34.0); Mean Corpuscular Hgb Conc 34.2 g/dL (32.0-36.0); Mean Platelet Volume 10.7 fL (9.4-12.4); Monocytes # (auto) 0.65 K/uL (0.11-0.59); Monocytes % (auto) 8.1 %; Neutrophils # (auto) 5.36 K/uL (1.40-6.50); Neutrophils % (auto) 66.5 %; Platelet Count 124 K/uL (130-400); RDW Coefficient of Variation 12.9 % (11.5-14.5); RDW Standard Deviation 41.6 fL (36.4-46.3); Red Blood Count 4.15 M/uL (4.70-6.10); White Blood Count 8.06 K/ul (4.8-10.8)
[2025-04-02 08:08] LABS: Partial Thromboplastin Time 27 Seconds (21-31); Prothrombin Time 11.1 Seconds (9.0-12.0)
[2025-04-02] MEDS: cefTRIAXone SODIUM 2,000 MG/50 ML BAG IV SCH (08:10)
[2025-04-02] MEDS: FLUTICASONE PROPIONATE NA SPR 16 GM BTL SCH (08:16)
[2025-04-02] MEDS: DOCUSATE SODIUM 100 MG CAP PO SCH (08:16)
[2025-04-02 08:24] LABS: Albumin Globulin Ratio 1.7 (0.9-2); Albumin Level 3.9 gm/dl (3.4-5.0); Bilirubin,Total 1.1 mg/dl (0.2-1.0); Calcium 8.6 mg/dl (8.6-10.3); Creatinine Clr Calc Pharmacy 63.7 ml/min; Globulin 2.3 gm/dl (2.5-4.0); Potassium 3.5 mmol/L (3.5-5.1); Total Protein 6.2 gm/dl (6.0-8.3)
--- NOTE | 2025-04-02 10:11 | Discharge Summary ---
Discharge Summary Date of Service April 02, 2025 Principal Dx & Hospital Course #1 = Principal Diagnosis (1) Hydronephrosis: (2) Acute right flank pain: (3) Calculus of right ureter: (4) Dyslipidemia: Plan Tai is a 74 y/o male with PMH of Hyperlipidemia that presented to the Ed due to right lower quadrant and back pain. Pain started this afternoon 5 pm, he describe the pain 10/10 that waxes and wane. On Ed evaluation found with kidney stone measure 4 mm, right moderate hydroureteronephrosis and acute appendicitis. Initial workup without leukocytosis, fever or tachycardia. Patient will be admitted for further evaluation and treatment #Kidney Stone / Moderate hydroureteronephrosis sudden acute 10/10 pain that waxed/wane w/ RLQ abdominal pain No leukocytosis, BMP stable CTAP w/ 4mm stone in mid right ureter. Moderate hydroureteronephrosis UA: blood, no WBC/leuk's Uro consulted --> appears patient has passed stone overnight as he is pain free. Recommend follow up outpatient. Discussed w/ urology, abx not needed on discharge. Tylenol prn for pain on discharge. #Acute appendicitis - Right lower quadrant pain - Abdominal AP - Early acute appendicitis or tip appendicitis - surgery consulted --> not consistent w/ appendicitis given presentation, more incidental finding. no further workup necessary - s/p 1x dose of Zosyn in ED #HLD- continue atorvastatin, ASA on hold for possible surgical intervention Patient discharged home 04/02. Discussed w/ urology at bedside 04/02. Admission HPI Per Admitting Provider Tai is a 74 y/o male with PMH of Hyperlipidemia that presented to the Ed due to right lower quadrant and back pain. Pain started this afternoon 5 pm, he describe the pain 10/10 that waxes and wane. Patient states he did developed nausea as well. Denied any history of kidney stones. Denied any fever, or chills. Denied any chest pain, SOB, palpitations. Evaluation found with kidney stone measure 4 mm, right moderate hydroureteronephrosis and acute appendicitis. Initial workup without leukocytosis, fever or tachycardia. Discharge Exam General: no acute distress; non-toxic appearing; well-nourished; cooperative HEENT: normocephalic, atraumatic; no scleral icterus; PERRLA w/ EOMs intact; vision and hearing grossly intact Skin: warm, dry without signs of tenting; no cyanosis; no rashes, bruising, lesions, or erythema noted Lungs: no acute respiratory distress; symmetrical chest wall expansion Neuro: A&Ox3; normal mood and affect; fluent speech; no focal deficits; sensation grossly intact in the LEs b/l Discharge Plan Discharge Items Patient Disposition: Home - Self-Care Reason For Visit: APPENDICITIS, HYDRONEPHROSIS Discharge Diagnosis: Right kidney stone, hydronephrosis Condition on Discharge: Good Activity: Resume your previous activity Non-emergency contact: Primary Care Provider and Urologist Call non-emergency contact if: you have any medication questions, your symptoms worsen and you have a fever Follow-up/Referrals: Anatoly Luz MD [Primary Care Provider] - 04/09/25 1:30 pm Diet: Regular Addtl Attending Provider Instructions: Mr. Thrasher, You were recently hospitalized for right lower abdominal pain and right sided back pain. You were found to have a kidney stone and there was a concern for appendicitis. You were evaluated by surgery who did not believe you had appendicitis. You also may have passed your stone as the pain as stopped. You were evaluated by urology who deemed it was safe to discharge you home today. Please see recommendations below regarding your discharge. Please follow up with urology outpatient. Please resume the remainder of your medications. Please follow up with your PCP within 1-2 weeks of discharge. If you develop any severe abdominal pain, fevers, chest pain, shortness of breath please report back to the ER for further care. [facility] [place]! Altagracia Kessler PA-C Pending Studies at Discharge: No Stand-Alone Forms: My [facility] [employer], Smoking Cessation Medications and DC Order Prescriptions: Continued atorvastatin 20 mg tablet 20 mg PO QPM Qty: 90 3RF azelastine 137 mcg (0.1 %) spray,non-aerosol 2 spray intranasal QPM Qty: 90 3RF Rx Instructions: 90 day supply= 3 bottles mometasone [Nasonex 24hr Allergy] 50 mcg/actuation spray,non-aerosol 2 spray intranasal DAILY Qty: 17 3RF Rx Instructions: administer into each nostril multivitamin [Daily Multi-Vitamin] tablet 1 tab PO DAILY aspirin 81 mg tablet,delayed release (DR/EC) 81 mg PO QAM docusate sodium 100 mg tablet 100 mg PO BID melatonin 5 mg Tablet 5 mg PO HS PRN (Reason: Sleep) guaifenesin [Mucinex] 600 mg Tablet Extended Release 12hr 600 mg PO QPM coQ10 (ubiquinol) 100 mg capsule 100 mg PO QPM metronidazole 0.75 % cream 1 applic topical DAILY PRN (Reason: DIRCTED) Discharge Orders: Discharge Order (Routine); Ordered 04/02/25 Ordered By: Altagracia Lundy/Other Patient Handouts: Understanding Kidney Stones Admission Data Admit Date/Time: 04/01/25 23:23 Attending Provider: Guillermo Meadows Admit Provider: Kendra Fernandez Primary Care Provider: Anatoly Luz V. Other Providers: Soy Parish; Chris Graham; Chris Reyes Other Interventions: Discharge Summary Assessment (RN) Last Done: 04/02/25 09:36 Hospital Stay Data Consultations 04/01/25 22:42 ED Decision to Admit Stat 04/02/25 01:54 Consult General Surgery Routine 04/02/25 02:06 Consult Urology Routine Diagnostic Imagining Performed 04/01/25 19:20 CT Abd and Pelvis [CT abd pelvis IV con only] Stat Pending Results Patient Have Any Pending Studies at Discharge: No Discharge Instructions Given to Patient (Per Discharging Provider) Noe Joy were recently hospitalized for right lower abdominal pain and right sided back pain. You were found to have a kidney stone and there was a concern for appendicitis. You were evaluated by surgery who did not believe you had appendicitis. You also may have passed your stone as the pain as stopped. You were evaluated by urology who deemed it was safe to discharge you home today. Please see recommendations below regarding your discharge. Please follow up with urology outpatient. Please resume the remainder of your medications. Please follow up with your PCP within 1-2 weeks of discharge. If you develop any severe abdominal pain, fevers, chest pain, shortness of breath please report back to the ER for further care. [facility] [place]! Altagracia Kessler PA-C Total Time Total Time Spent Total Time Spent (In Minutes): 45 Total Time Includes: Examination of the Patient, Discharge Planning, Medication Reconciliation and Communication With Other Providers Coding Level of Care Code 08540 INP/OBS DISCH >30 MIN Diagnoses Hydronephrosis N13.30 Acute right flank pain R10.9 Calculus of right ureter N20.1 Dyslipidemia E78.5
--- NOTE | 2025-04-02 10:57 | Urology Consultation ---
<Statement entered by Kenroy Sr MD - 04/02/25 12:33> 74-year-old male with ureteral stone. Low concern for infection or renal dysfunction at this point. He is a good candidate for trial of medical expulsive therapy with tamsulosin, pain control with Tylenol/ibuprofen. He would like to hold off intervention for now. Urology will coordinate outpatient. Date of Consultation April 02, 2025 Assessment & Plan (1) Acute right flank pain: (2) Calculus of right ureter: (3) Hydronephrosis: Plan 74-year-old male who presented with an acute onset of severe right sided pain and found to have an obstructing 4 mm mid right ureteral stone and concern for possible appendicitis. He is afebrile, hypertensive but otherwise stable Labs show no leukocytosis and normal renal function Urinalysis not concerning for infection We reviewed his CT showing an obstructing 4 mm mid right ureteral stone. We discussed options for acute stone management. Discussed cystoscopy and ureteral stent placement. Discussed conservative management and trial of passage. We reviewed stone passage rates given size and location. Ureteral stents were discussed as well as postoperative issues and pain management. Need for additional procedures also discussed. Risks and benefits of each were reviewed. All questions were answered. At the present time, he is stable and reports resolution of pain. He has not required pain medication since last night. He questions if he passed the stone due to resolution of symptoms though he did not collect or see a stone. Since he is feeling well, he prefers to monitor conservatively with trial of passage. He is eager to be discharged home today. We discussed the possibility of passed versus persistent stone and that we would plan to follow-up short term as an outpatient with repeat imaging. He was agreeable. No plan for acute intervention. Discussed with hospitalist. He is aware to contact our office sooner with any issues or concerns. Return ER precautions were reviewed. Urology will sign off. Please call with any questions/concerns or changes in patient status History of Present Illness Attending Physician: Guillermo Meadows History of Present Illness 74-year-old male who presented to the ED yesterday due to a sudden onset of severe right sided pain. On arrival he was afebrile and hemodynamically stable. Labs showing no leukocytosis and normal renal function. Urinalysis with 3+ blood but otherwise negative. CT imaging notable for an obstructing 4 mm mid right ureteral stone and question of acute appendicitis. ED course: Zofran, Toradol, morphine, fentanyl. He received Zosyn in the ED. He is admitted to medicine service. Patient was seen at bedside this morning. He is awake and resting in bed on arrival. No acute distress. at bedside. Has been NPO. Reports he is feeling well overall. He has not needed any additional pain medication since last night. He believes he may have passed the stone, however he did not collect or see a stone. Pain has resolved. He denies fever, chills, nausea, vomiting. Reports he is voiding without issue. Reports he was seen by general surgery who does not believe he has appendicitis. Patient states he is feeling well overall and is eager to be discharged home. He denies prior history of kidney stones. Allergies Allergy/AdvReac Type Severity Reaction Status Date / Time No Known Allergies Allergy Verified 04/01/25 22:43 Home Medications Medication Instructions Recorded Confirmed Type aspirin 81 mg tablet,delayed 81 mg PO QAM 08/25/19 04/01/25 History release docusate sodium 100 mg tablet 100 mg PO BID 08/25/19 04/01/25 History multivitamin (Daily Multi-Vitamin 1 tab PO DAILY 08/25/19 04/01/25 History tablet) guaifenesin 600 mg tablet, 600 mg PO QPM 05/03/20 04/01/25 History extended release 12 hr (Mucinex) melatonin 5 mg tablet 5 mg PO HS PRN Sleep 05/03/20 04/01/25 History coQ10 (ubiquinol) 100 mg capsule 100 mg PO QPM 09/27/20 04/01/25 History atorvastatin 20 mg tablet 20 mg PO QPM #90 tabs 06/30/24 04/01/25 Rx mometasone 50 mcg/actuation nasal 2 spray intranasal DAILY #17 grams 12/21/24 04/01/25 Rx spray (Nasonex 24hr Allergy) azelastine 137 mcg (0.1 %) nasal 2 spray intranasal QPM #90 mL 02/02/25 04/01/25 Rx spray metronidazole 0.75 % topical cream 1 applic topical DAILY PRN 04/01/25 04/01/25 History DIRCTED Patient History Medical History Hx of basal cell carcinoma REMOVED FROM [facility] Hyperlipidemia Surgical History H/O colonoscopy History of cataract surgery left/right History of tooth extraction History of tonsillectomy and adenoidectomy Blocked tear duct REPAIRED Hx of sinus surgery Family History Mother Colorectal cancer Breast cancer Grandmother (Paternal) Myocardial infarction Uncle Prostate cancer Myocardial infarction Grandfather (Maternal) Prostate cancer Denies family history of Ovarian cancer Social History Smoking Status: Never smoker Tobacco Type: Declines Second Hand Exposure: No; Do You Dip or Chew Tobacco: No; Hx Alcohol Use: Yes Alcohol type: wine Hx Substance Use: No Preferred Language: Nauruan Communication Ability: Effective Visual Impairment: No Limitations Hearing Ability: Normal Paleology Professor Required: No Beliefs That Will Affect Care: None marital status: Current Living Situation: Spouse current occupational status: retired Feels Safe at Home: Yes Childhood Exposure to Second-Hand Smoke: No caffeine: Yes Dental Care, Regularly: Yes Physical Activity Frequency: Daily Seatbelt Use: always Sunscreen Use: Yes Assistive Devices: None Review of Systems Review of Systems: All systems reviewed & are unremarkable except as noted in HPI & below Physical Exam Constitutional: well developed and well nourished; no acute distress Respiratory: normal respiratory effort; no respiratory distress and no labored breathing Musculoskeletal: Head/Neck/Chest: normocephalic Skin: No visible rashes or lesions to exposed skin areas Neurologic: moves all extremities and awake Psychiatric: A+Ox3, euthymic affect Results & Data Vital Signs (Past 12 Hours) Vital Signs Temp Pulse Pulse Pulse Resp BP BP 04/02/25 07:20 35.1 C L 50 L 12 163/80 H 04/02/25 01:55 36.5 C 73 18 04/02/25 00:56 36.8 C 66 17 135/79 04/01/25 23:15 64 BP Pulse Ox O2 Del Method 04/02/25 07:20 97 Room Air 04/02/25 01:55 174/92 H 94 Room Air 04/02/25 00:56 98 Room Air 04/01/25 23:15 PG Care Time/CCT Total # of Minutes Spent Total Time Spent with Patient: Total time spent is greater than 50% in coordination of care (as documented) at patient's floor/unit and/or counseling patient: Coding Level of Care Code 51632 INT INP/OBS CARE 2/55MIN Diagnoses Acute right flank pain R10.9 Calculus of right ureter N20.1 Hydronephrosis N13.30
[2025-04-02] MEDS ORDERED: ATORVASTATIN 20 MG TAB PO SCH (21:00)
[2025-04-02] MEDS ORDERED: guaiFENesin 600 MG TABCR PO SCH (21:00)
[2025-04-02] MEDS ORDERED: AZELASTINE HCL 0.1% NASAL 200 SPRAYS/27,400 MCG BTL NAE SCH (21:00)
== END 2025-04-02 10:42 | disposition home or self-care (01) | DRG 694 ==
LOC: ED 18:34 → SUATTDRO 23:23 → 3N 23:23 → INTOOBSV 23:23 → 3N 04-02 00:56